=== PATIENT | female | born 1960 | race Caucasian/White ===

== ENCOUNTER 2019-04-13 10:38 | Emergency (ER) | payer OTHER ==
[2019-04-13 10:44] VITALS: BMI 24.7
[2019-04-13] MEDS ORDERED: ACETAMINOPHEN 500 MG TABLET (FP) PO ONE (11:16)
--- NOTE | 2019-04-13 11:16 | PDOC ---
History of Present Illness - General Chief Complaint: Respiratory Stated Complaint: FLU Symptoms Time Seen by Provider: 04/13/19 10:51 History Source: Patient - History of Present Illness Initial Comments: 04/13/19 11:22 58-year-old female complaining of nasal congestion, cough, fever for the last 2 days. Denies nausea, vomiting, abdominal pain, chest pain. No past medical history denies taking any medication for fever Past History - Past Medical History Allergies/Adverse Reactions: Allergies Allergy/AdvReac Type Severity Reaction Status Date / Time No Known Allergies Allergy Verified 04/13/19 10:41 Home Medications: Ambulatory Orders Ibuprofen 400 mg PO QID #20 tablet 04/13/19 Oseltamivir Phosphate [Tamiflu] 75 mg PO BID #10 capsule 04/13/19 GI Disorders: Yes (GERD) - Immunization History Immunization Up to Date: Yes - Psycho Social/Smoking Cessation Hx Smoking History: Never smoked Number of Cigarettes Smoked Daily: 4 'Breaking Loose' booklet given: 10/25/15 Hx Alcohol Use: No Drug/Substance Use Hx: No Substance Use Type: None Review of Systems - Review of Systems Able to Perform ROS?: Yes Is the patient limited Chinese proficient: No Constitutional: Yes: Fever HEENTM: Yes: Nose Congestion. No: Symptoms Reported, See HPI, Eye Pain, Blurred Vision, Tearing, Recent change in vision, Double Vision, Cataracts, Ear Pain, Ocular Prothesis, Ear Discharge, Nose Pain, Tinnitus, Nose Bleeding, Hearing Loss, Throat Pain, Throat Swelling, Mouth Pain, Dental Problems, Difficulty Swallowing, Mouth Swelling, Other Respiratory: Yes: Cough ABD/GI: No: Symptoms Reported, See HPI, Abdominal Distended, Abd. Pain w/ defecation, Blood Streaked Bowels, Constipated, Diarrhea, Difficulty Swallowing , Nausea, Poor Appetite, Poor Fluid Intake, Rectal Bleeding, Vomiting, Indigestion, Abdominal cramping, Tarry Stools, Other *Physical Exam - Vital Signs Last Vital Signs Temp Pulse Resp BP Pulse Ox 99.8 F H 92 H 20 110/62 97 04/13/19 10:42 04/13/19 10:42 04/13/19 10:42 04/13/19 10:42 04/13/19 10:42 - Physical Exam General Appearance: Yes: Appropriately Dressed HEENT: positive: Pharyngeal Erythema, Nasal Congestion Respiratory/Chest: positive: Lungs Clear, Normal Breath Sounds Cardiovascular: positive: Regular Rhythm, Regular Rate Gastrointestinal/Abdominal: positive: Normal Bowel Sounds, Soft. negative: Tender Extremity: positive: Normal Capillary Refill, Normal Inspection Integumentary: positive: Normal Color, Dry, Warm Neurologic: positive: Fully Oriented, Alert, Normal Mood/Affect ED Progress Note - Progress Note Progress Note: 04/13/19 11:30 A: flu like symptoms; flu A positive P: chest xray influenza 04/13/19 12:58 Discharge - Discharge Information Problems reviewed: Yes Clinical Impression/Diagnosis: Flu-like symptoms, Influenza A Disposition: HOME - Additional Discharge Information Prescriptions: Ibuprofen 400 mg PO QID #20 tablet Oseltamivir Phosphate [Tamiflu] 75 mg PO BID #10 capsule - Follow up/Referral Referrals: Odin Rubi MD [Primary Care Provider] - - Patient Discharge Instructions Patient Printed Discharge Instructions: Influenza Additional Instructions: Take Tamiflu as prescribed Give Tylenol every 4 hours as needed for fever Give ibuprofen then every 6 hours as needed for fever Follow-up with your as soon as possible. Return to the emergency room if symptoms worsen. - Post Discharge Activity Work/Back to School Note: Back to Work
[2019-04-13] MEDS ORDERED: ACETAMINOPHEN 500 MG TABLET (FP) ONE (11:23)
[2019-04-13 12:51] VITALS: BP 108/64; PULSE 86; TEMP 98.5
== END 2019-04-13 12:51 | disposition home or self-care (01) ==
LOC: JERFT 10:38
DX: J09.X2 Influenza due to identified novel influenza A virus with other respiratory manifestations (principal); K21.9 Gastro-esophageal reflux disease without esophagitis
CPT/HCPCS: 71046-TC-FY; 87804; 99281-25

== ENCOUNTER 2021-04-10 17:34 | Emergency (ER) | payer OTHER ==
[2021-04-10 18:05] VITALS: BP 110/62; PULSE 89; TEMP 99.6; BMI 22.8
[2021-04-12 19:06] LABS: SARS-CoV-2 NAA Detected (Not Detected)
== END 2021-04-10 20:00 | disposition home or self-care (01) ==
LOC: JER 17:34
DX: U07.1 COVID-19 (principal)
CPT/HCPCS: 99283-25; C9803; U0003; U0005

== ENCOUNTER 2024-05-05 07:32 | Emergency (ER) | payer OTHER ==
[2024-05-05 07:44] VITALS: BP 104/97; PULSE 90; RESP 18; TEMP 98.4; BMI 27.4
[2024-05-05] MEDS ORDERED: guaiFENesin/D-METHORPHAN HB 10 ML UNIT-DOSE CUPS ONE (08:27)
[2024-05-05] MEDS ORDERED: ACETAMINOPHEN 500 MG TABLET (FP) ONE (08:28)
[2024-05-05] MEDS: guaiFENesin/D-METHORPHAN HB 10 ML UNIT-DOSE CUPS PO ONE (08:33)
[2024-05-05] MEDS: ACETAMINOPHEN 500 MG TABLET (FP) PO ONE (08:33)
== END 2024-05-05 10:18 | disposition home or self-care (01) ==
LOC: JERFT 07:32
DX: J10.1 Influenza due to other identified influenza virus with other respiratory manifestations (principal); R05.9 Cough, unspecified; R51.9 Headache, unspecified; R50.9 Fever, unspecified; M79.10 Myalgia, unspecified site; R55 Syncope and collapse; R42 Dizziness and giddiness; R11.10 Vomiting, unspecified
CPT/HCPCS: 0241U-QW; 71046-TC-FY; 87651; 99284-25